=== PATIENT | female | born 1940 ===

== ENCOUNTER 2020-10-21 09:46 | Outpatient (CLI) | payer OTHER | END 2020-10-21 09:50 | disposition home or self-care (01) | LOC: SONOGRAMA 09:46 | PROVIDERS: ATTEND Pathology Anatomic Pathology & Clinical Pathology | DX: E04.1 Nontoxic single thyroid nodule (principal); D34 Benign neoplasm of thyroid gland; E04.8 Other specified nontoxic goiter; E07.89 Other specified disorders of thyroid ==